=== PATIENT | female | born 1950 | race Caucasian/White ===

== ENCOUNTER → 2016-08-04 | Outpatient (CLI) | payer BC ==
--- NOTE | 2016-08-04 14:30 | MAMMOGRAPHY REPORT ---
BILATERAL DIGITAL SCREENING MAMMOGRAM WITH CAD: 08/04/2016 CLINICAL HISTORY: Routine screening. Patient has no complaints. TECHNIQUE: Bilateral CC and MLO views were obtained. Current study was also evaluated with a Comput er Aided Detection (CAD) system. COMPARISON: Comparison is made to exams dated: 07/13/2015 mammogram - [facility], 01/22/2014 mammogram, 01/21/2013 and 12/25/2008 mammogram. BREAST COMPOSITION: The tissue of both breasts is almost entirely fatty. FINDINGS: There is stable focal asymmetry in the subareolar left breast dating back to at least 11/2008, therefore likely benign. There are a few benign-appearing round calcifications in the breas ts. No new suspicious mass, architectural distortion or cluster of microcalcifications is seen. IMPRESSION: ACR BI-RADS CATEGORY 1: NEGATIVE There is no mammographic evidence of malignancy. A 1 year screening mammogram is recommended. The p atient will receive written notification of the results. Approximately 10% of breast cancers are not detected with mammography. A negative mammographic repor t should not delay biopsy if a clinically suggestive mass is present. Mora Nickerson M.D. ay/:08/04/2016 10:48:30 Medical Charge Entry Specialist: Carolina CARO(Estephania)(Art[place]), [facility] letter sent: Normal 1/2 BI-RADS Code: ACR BI-RADS Category 1: Negative
== END | disposition home or self-care (01) ==
LOC: C.MAMM 10:10
PROVIDERS: ATTEND Internal Medicine
DX: Z12.31 Encounter for screening mammogram for malignant neoplasm of breast (principal)

== ENCOUNTER → 2016-09-29 | Outpatient (CLI) | payer BC | END | disposition home or self-care (01) | LOC: C.PATHSPEC 15:15 | PROVIDERS: ATTEND Obstetrics & Gynecology | DX: N84.1 Polyp of cervix uteri (principal) ==

== ENCOUNTER → 2016-11-30 | Outpatient (CLI) | payer OTHER ==
[2016-11-30 14:45] LABS: BASO % 0.5 %; BASO ABS # 0.05 K/uL (0-0.2); COMPLETE YES; EOS % 0.8 %; IG% 0.2 %; LYMPH % 20.6 %; LYMPH ABS # 1.88 K/uL (1.2-3.4); MEAN CELL VOLUME 89.8 fL (80-100); MEAN CORPUSCULAR HEMOGLOBIN 29.4 pg (25-34); MEAN CORPUSCULAR HGB CONC 32.7 g/dl (32-36); MEAN PLATELET VOLUME 10.2 fL (7.4-10.4); NEUT % 70.9 %; PLATELET COUNT 331 K/uL (130-400); WHITE BLOOD COUNT 9.11 K/uL (4.8-10.8)
[2016-11-30 14:59] LABS: ALT/SGPT 22 U/L (12-78); BLOOD UREA NITROGEN 19 mg/dl (7-18); BUN/CREATININE RATIO 19.1 (10-20); CALCIUM 9.3 mg/dl (8.5-10.1); CARBON DIOXIDE 28 mmol/L (21-32); CHLORIDE 106 mmol/L (98-107); CHOLESTEROL 202 mg/dl (0-200); GLUCOSE 92 mg/dl (70-99); POTASSIUM 4.1 mmol/L (3.5-5.1); SODIUM 141 mmol/L (136-145)
[2016-11-30 15:10] LABS: ALB/GLOB RATIO 0.8 (0.9-2); ALKALINE PHOSPHATASE 121 U/L (45-117); AST/SGOT 17 U/L (15-37); CHOLESTEROL/HDL RATIO 3.1; HDL CHOLESTEROL 66 mg/dl; LDL CHOLESTEROL CALCULATED 120 mg/dl; TRIGLYCERIDES 81 mg/dl (0-150); VERY LOW DENSITY LIPOPROT CALC 16 mg/dl
== END | disposition home or self-care (01) ==
LOC: C.LABBC 09:43
PROVIDERS: ATTEND Internal Medicine
DX: R73.09 Other abnormal glucose (principal); Z11.59 Encounter for screening for other viral diseases

== ENCOUNTER → 2016-12-06 | Outpatient (CLI) | payer OTHER ==
--- NOTE | 2016-12-06 15:17 | DIAGNOSTIC IMAGING REPORT ---
BONE SCAN WHOLE BODY CLINICAL HISTORY: 66 years-old Female presenting with abnormal serum enzymes, elevated alkaline phosphatase. TECHNIQUE: Planar anterior and posterior whole body imaging was performed 3 hours following the intravenous administration of radiotracer. Radiotracer: 27 mCi Tc-99m MDP. COMPARISON: None. FINDINGS: Bilaterally symmetric focal activity noted in the lateral femoral condyles. This is likely degenerative in etiology. Additional activity in the bilateral feet likely also degenerative. No focal abnormal uptake to suggest metastatic disease or other inherent osseous abnormality. IMPRESSION: 1. 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 2. No evidence of osseous metastatic disease or other inherent osseous abnormality. Electronically signed by: Raulito Ariza M.D. 12/06/2016 3:16 PM Dictated Date/Time: 12/06/2016 3:10 PM
== END | disposition home or self-care (01) ==
LOC: C.NUCL 11:35
PROVIDERS: ATTEND Internal Medicine
DX: R74.8 Abnormal levels of other serum enzymes (principal); M17.0 Bilateral primary osteoarthritis of knee; M19.071 Primary osteoarthritis, right ankle and foot; M19.072 Primary osteoarthritis, left ankle and foot

== ENCOUNTER → 2017-10-04 | Outpatient (CLI) | payer OTHER | END | disposition home or self-care (01) | LOC: C.LABBC 08:45 | PROVIDERS: ATTEND Family Medicine Adult Medicine | DX: M79.621 Pain in right upper arm (principal); M79.622 Pain in left upper arm ==

== ENCOUNTER → 2017-12-12 | Outpatient (CLI) | payer OTHER ==
[2017-12-12 13:06] LABS: BASO % 0.3 %; BASO ABS # 0.03 K/uL (0-0.2); EOS % 1.3 %; EOS ABS # 0.12 K/uL (0-0.5); HEMOGLOBIN 14.5 g/dL (12.0-16.0); IG# 0.01 K/uL (0.00-0.02); LYMPH % 22.5 %; LYMPH ABS # 2.16 K/uL (1.2-3.4); MEAN CELL VOLUME 90.9 fL (80-100); MEAN CORPUSCULAR HEMOGLOBIN 29.3 pg (25-34); MEAN CORPUSCULAR HGB CONC 32.2 g/dl (32-36); MEAN PLATELET VOLUME 10.5 fL (7.4-10.4); MONO % 7.3 %; NEUT % 68.5 %; NEUT ABS # 6.58 K/uL (1.4-6.5); PLATELET COUNT 317 K/uL (130-400); RED CELL DISTRIBUTION WIDTH CV 14.1 % (11.5-14.5); RED CELL DISTRIBUTION WIDTH SD 47.4 fL (36.4-46.3)
[2017-12-12 13:30] LABS: HEMOGLOBIN A1C 5.9 % (4.5-5.6)
[2017-12-12 13:34] LABS: ALBUMIN 3.3 gm/dl (3.4-5.0); ALKALINE PHOSPHATASE 110 U/L (45-117); ALT/SGPT 22 U/L (12-78); AST/SGOT 16 U/L (15-37); BLOOD UREA NITROGEN 20 mg/dl (7-18); CALCIUM 8.9 mg/dl (8.5-10.1); CARBON DIOXIDE 30 mmol/L (21-32); CHOLESTEROL 193 mg/dl (0-200); CREATININE 0.83 mg/dl (0.60-1.20); GLUCOSE 88 mg/dl (70-99); LDL CHOLESTEROL CALCULATED 120 mg/dl; POTASSIUM 3.9 mmol/L (3.5-5.1); SODIUM 141 mmol/L (136-145); TOTAL PROTEIN 7.1 gm/dl (6.4-8.2)
== END | disposition home or self-care (01) ==
LOC: C.LABBC 08:17
PROVIDERS: ATTEND Internal Medicine
DX: Z00.00 Encounter for general adult medical examination without abnormal findings (principal); E78.5 Hyperlipidemia, unspecified; R73.09 Other abnormal glucose; R74.8 Abnormal levels of other serum enzymes; M79.621 Pain in right upper arm; M79.622 Pain in left upper arm